=== PATIENT | female | born 1970 | race Caucasian/White ===

== ENCOUNTER 2017-06-30 09:10 | Emergency (ER) | END 2017-06-30 11:57 | disposition home or self-care (01) ==

== ENCOUNTER 2018-08-27 21:45 | Emergency (ER) | payer OTHER ==
[~2018-08-27] VITALS: Ht 167.6 cm; Wt 127.3 kg
[~2018-08-27 21:45] MED LIST: ONDA4TAB14 PO; OSEL75CA23 PO
[2018-08-27 21:53] VITALS: Ht 167.6 cm; Wt 127.3 kg
[2018-08-28 02:03] VITALS: BP 139/74; PULSE 88; RESP 16
[2018-08-28] MEDS ORDERED: HYDR-4011 PO (02:22)
--- NOTE | 2018-08-28 02:24 | ERD ---
ER Documentation Chief Complaint Chief Complaint BIB RA81,Rt knee swelling,bilat knee pain,lower back pain HPI This is a 48-year-old female with osteoarthritic knees who has been moving fur niture and boxes for the past 3 days doing lots of walking bending stooping. She says both of her knees are aching as well as both of her ankles. The patient is very overweight. No leg swelling no fall no trauma no shortness of breath. Patient complains of some achy knees that are worse when he moves and better with rest ROS All systems reviewed and are negative except as per history of present illness. Medications Home Meds Active Scripts Hydrocodone/Acetaminophen ([place] 5-325 Tablet) 1 Each Tablet, 1 TAB PO Q6H PRN for PAIN, #15 TAB Prov:MARILYN MOLINA DO 08/28/18 Ondansetron (Ondansetron Odt) 4 Mg Tab.rapdis, 4 MG PO Q6H PRN for NAUSEA AND/OR VOMITING, #10 TAB Prov:CRUZ HUITRON PA-C 06/30/17 Oseltamivir Phosphate* (Tamiflu*) 75 Mg Capsule, 75 MG PO BID for 5 Days, CAP Prov:CRUZ HUITRON PA-C 06/30/17 Allergies Allergies: Coded Allergies: Penicillins (Verified Allergy, Unknown, 06/30/17) naproxen (Verified Allergy, Unknown, 08/27/18) PMhx/Soc History of Surgery: Yes (ALEJANDRO BERMUDEZ 2006) Anesthesia Reaction: No Hx Neurological Disorder: No Hx Respiratory Disorders: No Hx Cardiac Disorders: No Hx Psychiatric Problems: Yes (DEPRESSION ) Hx Miscellaneous Medical Probl: No Hx Alcohol Use: No Hx Substance Use: No Hx Tobacco Use: No Smoking Status: Never smoker FmHx Family History: No coronary disease Physical Exam Vitals Vital Signs Date Temp Pulse Resp B/P (MAP) Pulse Ox O2 O2 Flow FiO2 Time Delivery Rate 08/28/18 88 16 139/74 99 Room Air 02:03 (95) 08/27/18 98.2 91 18 146/79 97 21:53 (101) Physical Exam Const: Well-developed, well-nourished Head: Atraumatic, normocephalic Eyes: Normal Conjunctiva, PERRLA, EOMI, normal sclera, no nystagmus ENT: Normal External Ears, Nose and Mouth, moist mucus membranes. Neck: Full range of motion. No meningismus, no lymphadenopathy. Resp: Clear to auscultation bilaterally, no wheezing, rhonchi, rales Cardio: Regular rate and rhythm, no murmurs, S1 S2 present Abd: Soft, non tender x 4, non distended. Normal bowel sounds, no guarding or rebound, no pulsitile abdominal masses or bruits Skin: No petechiae or rashes, no ecchymosis , no maculopapular rash Back: No midline or flank tenderness Ext: No cyanosis, or edema, FROM x 4, normal inspection, bilateral knee osteoarthritic appearance with tenderness that is mild no swelling or erythema there is full range of motion but some pain neurovascularly intact x 4 Neur: Awake and alert, STR 5/5 x 4, sensation intact x 4, no focal findings, cerebellum intact Psych: Normal Mood and Affect Results 24 hrs Current Medications Medications Dose Sig/Aubrey Start Time Status Last (Trade) Ordered Route PRN Stop Time Admin Dose Reason Admin 1 tab ONCE ONCE 08/28/18 Acetaminophen PO 02:30 / 08/28/18 02:31 Hydrocodone Bitart ([place] (17/355)) Procedures/MDM Patient just has some overuse from moving the past 3 days she is having an osteoarthritic flareup. She is allergic to NSAIDs so we will treat with hydrocodone and Bennie wrap Departure Diagnosis: Primary Impression: Osteoarthritis Osteoarthritis location: knee Osteoarthritis type: unspecified Laterality: bilateral Qualified Codes: M17.0 - Bilateral primary osteoarthritis of knee Condition: Stable Patient Instructions: Osteoarthritis: Managing Pain MARILYN MOLINA DO Aug 28, 2018 02:24
[2018-08-28] MEDS ORDERED: HYDROCODONE/APAP (10/325) TAB PO ONE (02:30)
[2018-08-28] MEDS ORDERED: BUPR300T4 PO (03:36)
== END 2018-08-28 02:46 | disposition home or self-care (01) ==
LOC: E/R 21:45
DX: M17.0 Bilateral primary osteoarthritis of knee (principal)
CPT/HCPCS: Z7502; Z7610; 99283